=== PATIENT | female | born 1955 | race Caucasian/White ===

== ENCOUNTER 2016-06-21 06:04 | Day surgery (SDC) | payer OTHER ==
--- NOTE | ~2016-06-21 | EGD ---
EGD REPORT [facility] [address] [place]. [id number] NAME: RONALD GOOD : 53 STATUS : REG [facility]#: [id number] AGE: 61 ADM/REG DATE : 06/21/16 MR#: [id number] REPORT SERV DATE: 06/21/16 DICTATED BY: JESSIE OLIVO DATE: 06/21/16 REPORT STATUS : Draft TRANSCRIBED BY: [facility] DATE: 06/21/16 Endoscopy Center Patient Name: Ronald Good Date of : 1955 Attending MD: COLUMBA OLIVO MD Procedure Date No Time: 06/21/2016 Procedure: Colonoscopy Indications: Screening for colorectal malignant neoplasm, This is the patient's first colonoscopy Referring MD: Gilma De La O Medicines: See the Anesthesia note for documentation of the administered medications Complications: No immediate complications. Estimated blood loss: None. Procedure: Pre-Anesthesia Assessment: - ASA Grade Assessment: III - A patient with severe systemic disease. - Prior to the procedure, a History and Physical was performed, and patient medications and allergies were reviewed. The patient's tolerance of previous anesthesia was also reviewed. The risks and benefits of the procedure and the sedation options and risks were discussed with the patient. All questions were answered, and informed consent was obtained. Prior Anticoagulants: The patient has taken aspirin, last dose was 2 days prior to procedure. After reviewing the risks and benefits, the patient was deemed in satisfactory condition to undergo the procedure. After I obtained informed consent, the scope was passed under direct vision. Throughout the procedure, the patient's blood pressure, pulse, and oxygen saturations were monitored continuously. The PCF [id number] was introduced through the anus and advanced to the cecum, identified by appendiceal orifice and ileocecal valve. The ileocecal valve, appendiceal orifice and rectum were photographed. The entire colon was examined. The colonoscopy was performed without difficulty. The patient tolerated the procedure well. The quality of the bowel preparation was adequate. Findings: The perianal and digital rectal examinations were normal. Non-bleeding internal hemorrhoids were found during retroflexion and were Grade I (internal hemorrhoids that do not prolapse). There is no endoscopic evidence of diverticula or polyps in the entire colon. EGD REPORT [place] [id number] [facility] [place]. [address] NAME: RONALD GOOD : [birth year] STATUS : REG [facility]#: [id number] AGE: 61 ADM/REG DATE : 06/21/16 MR#: [id number] REPORT SERV DATE: 06/21/16 DICTATED BY: JESSIE OLIVO DATE: 06/21/16 REPORT STATUS : Draft [facility]ANS[facility]IBED BY: [facility] DATE: 06/21/16 Impression: - Non-bleeding internal hemorrhoids. Recommendation: - Patient has a contact number available for emergencies. The signs and symptoms of potential delayed complications were discussed with the patient. Return to normal activities tomorrow. Written discharge instructions were provided to the patient. - Regular diet. - Discharge patient to home. - Continue present medications. - Discharge patient to home. - Repeat colonoscopy in 10 years for surveillance. Procedure Code(s): --- Professional --- 43053, Colonoscopy, flexible, proximal to splenic flexure; diagnostic, with or without collection of specimen(s) by brushing or washing, with or without colon decompression (separate procedure) Diagnosis Code(s): --- Professional --- K64.0, First degree hemorrhoids Z12.11, Encounter for screening for malignant neoplasm of colon CPT copyright 2013 [employer]. All rights reserved. The codes documented in this report are preliminary and upon surgical coder review may be revised to meet current compliance requirements. COLUMBA OLIVO MD 06/21/2016 8:14 AM This report has been signed electronically. Number of Addenda: 0 Note Initiated On: 06/21/2016 7:44 AM Scope Withdrawal Time 0 hours 12 minutes 2 seconds [address] [place] [id number]
[~2016-06-21 06:04] MED LIST: CALTRA600D PO; CARDCD240 PO; COREG6 PO; HUMAPUMP SC; L40 PO; LOP25 PO; NITROSTAT0.4 MG SL; NORV5 PO; NOVLOGPUMP SC; PRAVACHOL40 MG PO; PRILO PO; PRIN10 PO; VICODINTAB PO; [UNRECOGNIZED DRUG - OTHER] IM
== END 2016-06-21 23:59 | disposition home or self-care (01) ==
LOC: DMU 06:04
PROVIDERS: Internal Medicine Gastroenterology
PROC: 0DJD8ZZ Inspection of Lower Intestinal Tract, Via Natural or Artificial Opening Endoscopic (ICD-10-PCS; principal; 2016-06-21 08:00)
DX: Z12.11 Encounter for screening for malignant neoplasm of colon (principal); K64.0 First degree hemorrhoids; I10 Essential (primary) hypertension; E78.00 Pure hypercholesterolemia, unspecified; I25.10 Atherosclerotic heart disease of native coronary artery without angina pectoris; I25.2 Old myocardial infarction; M19.90 Unspecified osteoarthritis, unspecified site; E66.01 Morbid (severe) obesity due to excess calories; K21.9 Gastro-esophageal reflux disease without esophagitis; E11.9 Type 2 diabetes mellitus without complications; Z95.1 Presence of aortocoronary bypass graft
CPT/HCPCS: 82962